=== PATIENT | female | born 1965 | race Two or more races ===

== ENCOUNTER 2017-02-23 06:06 | Inpatient (IN) | payer OTHER ==
[2017-02-02 15:09] LABS: % IMMATURE GRANULYOCYTES 0.3 % (0.0-1.1); ABSOLUTE IMMATURE GRANULOCYTES 0.03 10^3/uL (0.00-0.10); ADD DIFF? NO; ADD MORPH? NO; ADD SCAN? NO; ATYPICAL LYMPHOCYTE FLAG 0 (0-99); FRAGMENT RBC FLAG 0 (0-99); HEMATOCRIT 42.4 % (38.0-47.0); HEMOGLOBIN 13.9 g/dL (12.6-16.3); LEFT SHIFT FLG 0 (0-99); LIPEMIA HEMOLYSIS FLAG 80 (0-99); MEAN CELL HEMOGLOBIN 30.2 pg (27.9-34.1); MEAN CELL HEMOGLOBIN CONCENTR. 32.8 g/dL (32.4-36.7); MEAN PLATELET VOLUME 10.3 fL (8.7-11.7); PLATELET CLUMPS FLAG 20 (0-99); PLATELET COUNT 284 10^3/uL (150-400); RED BLOOD CELL COUNT 4.61 10^6/uL (4.18-5.33); RED CELL DISTRIBUTION WIDTH 13.4 % (11.5-15.2)
[~2017-02-23 06:06] MED LIST: ACETAMINOPHEN 325 MG TAB PO ONE; CEFAZOLIN 2 GM/DEXTR 100 ML IV ONE; CHLORHEXIDINE GLUC HIBICLENS 118 ML BTL TP ONE; DEXAMETHASONE 4 MG/ML VIAL IVP ONE; FAMOTIDINE 20 MG TAB PO ONE; ROPI/epiNEPH/KETOROLAC JOINT COCKTAIL IU ONE; TRANEXAMIC ACID 3,000 MG in NS 50 ML IRR ONE
[2017-02-23] MEDS ORDERED: TRANEXAMIC ACID 3,000 MG/50 ML BAG IRR ONE (06:36)
[2017-02-23] MEDS ORDERED: LR 1,000 ML IV ONE (06:37)
[2017-02-23] MEDS ORDERED: LIDOCAINE 1% 5 ML SDV ID PRN (06:37)
[2017-02-23] MEDS ORDERED: CEFAZOLIN 2 GM/DEXTROSE/100 ML BAG IV ONE (06:46)
[2017-02-23] MEDS ORDERED: DEXAMETHASONE 4 MG/ML VIAL ONE (06:46)
[2017-02-23] MEDS ORDERED: FAMOTIDINE 20 MG TAB ONE (06:46)
[2017-02-23] MEDS ORDERED: ACETAMINOPHEN 325 MG TAB ONE (06:46)
[2017-02-23] MEDS ORDERED: LIDOCAINE 1% 5 ML SDV ONE (06:47)
[2017-02-23] MEDS ORDERED: MIDAZOLAM 2 MG/2 ML VIAL ONE (07:56)
[2017-02-23] MEDS ORDERED: PROPOFOL/EMULSION 500 MG/50 ML BOTTLE IV ONE ×2 (07:59→08:54)
[2017-02-23] MEDS ORDERED: PROMETHAZINE HCL 25 MG SUPPR PR PRN (08:44)
[2017-02-23] MEDS ORDERED: MAGNESIUM HYDROXIDE 30 ML UDCUP PO PRN (08:44)
[2017-02-23] MEDS ORDERED: DIPHENOXYLATE/ATROPINE LOMOTIL 1 TAB PO PRN (08:44)
[2017-02-23] MEDS ORDERED: ONDANSETRON DISINTEGRATING 4 MG TAB PO PRN (08:44)
[2017-02-23] MEDS ORDERED: diphenhydrAMINE 25 MG CAP PO PRN (08:44)
[2017-02-23] MEDS ORDERED: METOCLOPRAMIDE 10 MG/2 ML VIAL IVP PRN (08:44)
[2017-02-23] MEDS ORDERED: BISACODYL 10 MG SUPP PR PRN (08:44)
[2017-02-23] MEDS ORDERED: CYCLOBENZAPRINE 10 MG TAB PO PRN (08:44)
[2017-02-23] MEDS ORDERED: LACTULOSE 20 GM/30 ML UDCUP PO PRN (08:44)
[2017-02-23] MEDS ORDERED: TEMAZEPAM 15 MG CAP PO PRN (08:44)
[2017-02-23] MEDS ORDERED: POLYETHYLENE GLYCOL 3350 17 GM PKT PO PRN (08:44)
[2017-02-23] MEDS ORDERED: ONDANSETRON 4 MG/2 ML VIAL IVP PRN (08:44)
[2017-02-23] MEDS ORDERED: PHARMACY PAIN CONSULT 1 EA MISC PRN (08:44)
[2017-02-23] MEDS ORDERED: RIZATRIPTAN BENZOATE PO PRN (08:45)
[2017-02-23] MEDS ORDERED: LR 1,000 ML IV SCH (09:00)
--- NOTE | 2017-02-23 09:38 | POSTOPPROG ---
Post Op Note Date of Operation: 02/23/17 Surgeon: Rama Perry Charge Authorizer: obie perry Anesthesiologist: dr. arias Anesthesia: Spinal Pre-op Diagnosis: left hip OA Post-op Diagnosis: same Indication: left hip pain due to OA that failed conservative measures Procedure: L WAYNE ant approach Findings: severe hip OA Inf/Abcess present in the surg proc area at time of surgery?: No EBL: 100-500
[2017-02-23] MEDS ORDERED: fentaNYL 100 MCG/2 ML INJ ONE (09:53)
[2017-02-23] MEDS ORDERED: oxyCODONE IR 5 MG TAB ONE (10:15)
[2017-02-23] MEDS: ACETAMINOPHEN 325 MG TAB PO SCH ×2 (12:06→18:52)
[2017-02-23] MEDS: oxyCODONE IR 5 MG TAB PO PRN ×4 (13:16→20:55)
[2017-02-23] MEDS: ceFAZolin 2 GM/DEXTROSE 100 ML IV SCH ×2 (14:42→20:55)
[2017-02-23 15:08] VITALS: RESP 16
[2017-02-23] MEDS: SENNOSIDES/DOCUSATE SODIUM TAB PO SCH ×2 (17:01→20:55)
[2017-02-23] MEDS: FAMOTIDINE 20 MG TAB PO SCH (20:55)
[2017-02-23] MEDS: ASPIRIN 325 MG TAB PO SCH (20:55)
[2017-02-24] MEDS: ACETAMINOPHEN 325 MG TAB PO SCH ×2 (00:11→05:16)
--- NOTE | 2017-02-24 04:21 | GOP ---
[f rep st] OPERATIVE REPORT DATE OF OPERATION: 02/23/2017 SURGEON: Selene Pelaez MD ASSISTANT DIRECTOR OF SECURITY: FELTON Escobedo. ANESTHESIA: Spinal. PREOPERATIVE DIAGNOSIS: Left hip osteoarthritis. POSTOPERATIVE DIAGNOSIS: Left hip osteoarthritis. PROCEDURE PERFORMED: Total hip arthroplasty with x-ray. FINDINGS: ESTIMATED BLOOD LOSS: 200 cc. INDICATIONS: The patient has progressively worsening arthritis of the hip which has failed medical management. The patient understands the treatment options including continued non-operative care and has selected surgical intervention. The patient has decided to undergo total hip arthroplasty via the direct anterior approach, understanding the risks of the procedure including , but not limited to, neurovascular injury, infection, persistent pain, component wear and loosening, deep venous thrombosis, pulmonary embolism, limb length inequality, hip instability (including dislocation), and intra-operative fractures. DESCRIPTION OF PROCEDURE: After proper identification of the patient including verification and marking the surgical site, the patient was brought to the operating room and placed in the supine position. All bony prominences were well padded. Anesthesia was induced without complication and intravenous prophylactic antibiotics were administered prior to skin incision. The operative leg was placed in the Trumpf Arch table extension and the well leg in a Yellofin leg dubon. The patient was prepped and draped in the usual sterile fashion. The C-arm was draped for intra-operative fluoroscopy to check acetabular position, femoral component position including leg length and femoral offset. Attention was then drawn to surgical exposure of the hip. An incision was made with a #10 Bard Larry blade starting 3 cm lateral and 3 cm distal to the anterior superior iliac spine measuring 8-10 cm and coursing distally toward the greater trochanter. The skin and subcutaneous tissues were divided sharply down to the fascia lona. The fascia lona was incised in line with the skin incision exposing the underlying tensor fascia lona muscle. The muscle was bluntly elevated from the fascia and the first extracapsular Cobra retractor was placed laterally at the junction of the superior femoral neck and greater trochanter. The lateral femoral circumflex vessels were identified, cauterized , and divided with the Aquamantys bipolar cautery. The deep investing fascia of the TFL was divided to allow proper mobilization of the muscle preventing damage during the retraction. The reflected head of the rectus femoris muscle was elevated off the anterior hip capsule and a medial Cobra retractor was placed just proximal to the lesser trochanter. The anterior capsulotomy was made sharply from the superolateral acetabulum to the saddle junction of the superior femoral neck and greater trochanter, then coursing inferomedial towards the lesser trochanter. The retractors were then placed in the intracapsular position for femoral neck osteotomy. Corresponding to pre-operative templating, the osteotomy was made with the oscillating saw carefully protecting the greater trochanter and soft tissues. The femoral head was removed from the acetabulum with a corkscrew and confirmed to be severely arthritic with exposed bone, deformity and osteophytes. Similar findings were confirmed in the acetabulum. The Arch table extension was then placed in 40 degrees external rotation. Attention was then drawn to the acetabular preparation. After placement of the anterior and posterior Cobra retractors outside the labrum and intracapsular, the circumferential labrum was removed sharply. The foveal contents were then removed and hemostasis obtained with cautery. The first reamer selected was sized using the removed femoral head. Reaming began with medialization and then commenced in 2 mm increments at 45 degrees of abduction and 15 degrees of anteversion using fluoroscopic navigation. Reaming ceased 1 mm less than the definitive acetabular component and corresponded to the pre-operative templating. The final acetabular component was inserted using fluoroscopy to achieve proper orientation yielding excellent purchase and stability in the acetabulum. The final acetabular liner was then placed and its seating confirmed. Attention was then turned to the femur. The Arch table extension was placed in extension and adduction, delivering the osteotomized femoral neck into the wound. A 2-pronged femoral elevator was placed at the calcar and another at the tip of the greater trochanter. The posterolateral capsule was released with cautery allowing mobilization of the femur lateral and anterior for preparation. The external rotators were visualized and preserved. A curette and rongeur were used to open the starting point for broaching. Serial broaching started with the #0 broach and ended with the broach that exhibited excellent fit in the proximal femur. A change in pitch during mallet strikes was accompanied by the inability to advance the broach any further. The trial reduction was performed and fluoroscopic navigation was utilized to check limb length. Adjustments were made to equalize limb length accordingly. After the final trials were accepted they were removed and the wound was copiously lavaged. The femoral component was seated to the same depth as the final broach and the femoral head was impacted onto the clean trunnion. The hip was then reduced for the final time and once more fluoroscopy was used to check that limb length equality was achieved. The wound was irrigated and closed in layers, the fascia lona with 2-0 Quill, the subcutaneous tissue with 2-0 Quill, and the skin with Dermabond. Sterile dressings were applied. Final sharps and sponge counts were accurate. The patient was then transferred to a hospital bed and brought to the recovery room in stable condition. IMPLANTS: Accolade II, size 3 at 127. Acetabular component 48 mm Tritanium. The liner is a Trident X3 at 32 mm. The head is a Biolox Delta 32 mm +0. /[id number]/MODL MTDD
[2017-02-24 05:29] LABS: HEMATOCRIT 34.8 % (38.0-47.0)
[2017-02-24 07:14] VITALS: BP 122/79; PULSE 60; TEMP 97.6; O2SAT 95
[2017-02-24] MEDS: ASPIRIN 325 MG TAB PO SCH (08:22)
[2017-02-24] MEDS: SENNOSIDES/DOCUSATE SODIUM TAB PO SCH (08:22)
[2017-02-24] MEDS: FAMOTIDINE 20 MG TAB PO SCH (08:23)
[2017-02-24] MEDS ORDERED: NON-FORMULARY NEW DRUG (Citalopram Hydrobromide [Celexa 10 Mg] 10 MG) PO SCH (09:00)
[2017-02-24] MEDS ORDERED: LOSARTAN POTASSIUM 25 MG TAB PO SCH (09:00)
[2017-02-24] MEDS ORDERED: NON-FORMULARY NEW DRUG (Esomeprazole Mag Trihydrate [Nexium] 40 MG) PO SCH (09:00)
[2017-02-24] MEDS ORDERED: CITALOPRAM 20 MG TAB PO SCH (09:00)
[2017-02-24] MEDS ORDERED: PANTOPRAZOLE SODIUM 40 MG TAB PO SCH (09:00)
[2017-02-24] MEDS: oxyCODONE IR 5 MG TAB PO PRN (10:40)
--- NOTE | 2017-02-24 11:41 | SOAPPROG ---
SOAP Progress Note Assessment/Plan: Assessment: Patient is doing well POD 1 s/p L WAYNE Pain management: pain is well controlled on oral pain meds. VTE ppx: recommend aspirin daily for 3 weeks, cont GLENDA and SCDs Anemia: level is expected initially postop. Asymptomatic. Continue to monitor D/c planning: d/c to home today pending release from PT Plan: 02/24/17 11:40 Subjective: Mitali is doing well today, denies SOB, chest pain and N/V Objective: Vital Signs Temp Pulse Resp BP Pulse Ox 36.4 C 60 16 122/79 H 95 02/24/17 07:13 02/24/17 07:13 02/24/17 07:13 02/24/17 07:13 02/24/17 07:13 Laboratory Results 02/24/17 05:07 02/23/17 02/24/17 02/25/17 05:59 05:59 05:59 Intake Total 3605 Output Total 1850 Balance 1755 LLE: incision dressing is clean and dry, NVI, +pf/df ICD10 Worksheet Patient Problems: Problems Problem Status Onset Primary localized osteoarthritis of left hip Acute
--- NOTE | 2017-02-24 12:32 | GDS ---
[f rep st] DISCHARGE SUMMARY ADMISSION DIAGNOSIS: Left hip osteoarthritis. DISCHARGE DIAGNOSIS: Left hip osteoarthritis. PROCEDURE: Left total hip arthroplasty. VTE PROPHYLAXIS: Aspirin recommended for 3 weeks daily. BRIEF DESCRIPTION OF HOSPITAL STAY: Patient was admitted for an elective joint arthroplasty. The p atient tolerated the procedure well and has passed physical therapy. The patient was given appropri ate antibiotic prophylaxis and venous thromboembolism prophylaxis. The patient's pain was well cont rolled on oral pain medication, patient was holding down food, and had urinated. Decision was made to discharge the patient. The patient was given post-operative prescriptions pre-operatively. PLAN: Please follow up as scheduled with Dr. Pelaez's office March 15 at 8:45 a.m. /[id number]/MODL
== END 2017-02-24 12:39 | disposition home or self-care (01) | DRG 470 ==
LOC: F3N 06:06
PROVIDERS: ADMIT Orthopaedic Surgery; ATTEND Orthopaedic Surgery
PROC: 0SRB04Z Replacement of Left Hip Joint with Ceramic on Polyethylene Synthetic Substitute, Open Approach (ICD-10-PCS; principal; 2017-02-23 08:15)
DX: M16.12 Unilateral primary osteoarthritis, left hip (principal)
CPT/HCPCS: 97116-GP; 97161-GP; 97165-GO; J0171; J0690; J1100; J1885; J2250; J2704; J2795; J3010

== ENCOUNTER → 2017-04-06 | Outpatient (CLI) | payer OTHER | LOC: FIMAGING 15:30 | PROVIDERS: ATTEND Nurse Practitioner Adult Health | DX: M79.651 Pain in right thigh (principal); M79.652 Pain in left thigh; Z96.642 Presence of left artificial hip joint ==

== ENCOUNTER → 2017-07-13 | Outpatient (CLI) | payer OTHER | LOC: BMCIMAGING 13:51 | PROVIDERS: ATTEND Internal Medicine | DX: Z12.31 Encounter for screening mammogram for malignant neoplasm of breast (principal) | CPT/HCPCS: G0202 ==

== ENCOUNTER → 2017-08-26 | Outpatient (CLI) | payer OTHER | LOC: FIMAGING 07:51 | PROVIDERS: ATTEND Orthopaedic Surgery | DX: Z01.818 Encounter for other preprocedural examination (principal); M17.11 Unilateral primary osteoarthritis, right knee ==

== ENCOUNTER 2017-09-07 09:25 | Observation (INO) | payer OTHER ==
[~2017-09-07 09:25] MED LIST changes: -ACETAMINOPHEN 325 MG TAB PO ONE; -CEFAZOLIN 2 GM/DEXTR 100 ML IV ONE; -CHLORHEXIDINE GLUC HIBICLENS 118 ML BTL TP ONE; -DEXAMETHASONE 4 MG/ML VIAL IVP ONE; -FAMOTIDINE 20 MG TAB PO ONE; -ROPI/epiNEPH/KETOROLAC JOINT COCKTAIL IU ONE; +ROPIVACAINE 0.2% 80 MG, EPINEPHrine 0.2 MG, KETOROLAC TROMETHAMINE 30 MG in BAG 0 ML IU ONE
[2017-09-07] MEDS ORDERED: TRANEXAMIC ACID 3,000 MG/50 ML BAG IRR ONE (09:28)
[2017-09-07] MEDS ORDERED: VANCOMYCIN 1 GM VIAL ONE (09:28)
[2017-09-07] MEDS ORDERED: ceFAZolin 2 GM/SWFI 2 GM/20 ML SYR IVP ONE (09:51)
[2017-09-07] MEDS ORDERED: DEXAMETHASONE 4 MG/ML VIAL IVP ONE (09:51)
[2017-09-07] MEDS ORDERED: FAMOTIDINE 20 MG TAB PO ONE (09:51)
--- NOTE | 2017-09-07 10:55 | PDHPUP ---
History & Physical Update H&P update statement: This history and physical update is based on an assessment of the patient which was completed after admission or registration (within 24 hours), but prior to the surgery/procedure. H&P update: H&P reviewed & patient examined, no change in patient's condition since H&P completed
[2017-09-07] MEDS ORDERED: MIDAZOLAM 2 MG/2 ML VIAL ONE (11:28)
[2017-09-07] MEDS ORDERED: MIDAZOLAM 2 MG/2 ML VIAL IVP ONE (11:34)
--- NOTE | 2017-09-07 11:35 | PDANEPAE ---
ANE History of Present Illness patient presents for partial R TKA ANE Past Medical History - Cardiovascular History Hx Hypertension: Yes Hx Arrhythmias: No Hx Chest Pain: No Hx Coronary Artery / Peripheral Vascular Disease: No Hx CHF / Valvular Disease: No Hx Palpitations: No Cardiovascular History Comment: PCP MONITORS BP MEDS - Pulmonary History Hx COPD: No Hx Asthma/Reactive Airway Disease: No Hx Recent Upper Respiratory Infection: No Hx Oxygen in Use at Home: No Hx Sleep Apnea: No Sleep Apnea Screening Result - Last Documented: Positive Pulmonary History Comment: SUDHEER w/CPAP - Neurologic History Hx Cerebrovascular Accident: No Hx Seizures: No Hx Dementia: No - Endocrine History Hx Diabetes: No - Renal History Hx Renal Disorders: No - Liver History Hx Hepatic Disorders: No - Neurological & Psychiatric Hx Hx Neurological and Psychiatric Disorders: Yes Neurological / Psychiatric History Comment: MIGRAINES - Cancer History Hx Cancer: No - Congenital Disorder History Hx Congenital Disorders: No - GI History Hx Gastrointestinal Disorders: Yes Gastrointestinal History Comment: REFLUX- ON NEXIUM - Other Health History Other Health History: WEARS GLASSES - Chronic Pain History Chronic Pain: Yes (LEFT HIP) - Surgical History Prior Surgeries: 04/02/15 LEFT TKA WITH RAGINI. ARTHROSCOPES SARAH KNEES. SHOULDER ARTHROSCOPY. UMB HERNIA REPAIR. TUBAL LIGATION ANE Review of Systems Review of Systems: - Exercise capacity METS (RN): 4 METS ANE Patient History - Allergies Allergies/Adverse Reactions: ciprofloxacin [From Cipro] Allergy (Verified 08/10/17 10:12) Hives ciprofloxacin HCl [From Cipro] Allergy (Verified 08/10/17 10:12) Hives diclofenac sodium [From Voltaren] Allergy (Verified 08/10/17 10:12) Other-Enter Comments - Home Medications Home medications: home medication list seen and reviewed Home Medications: Cetirizine [ZyrTEC 10 mg (*)] 10 mg PO DAILY 03/13/15 [Last Taken 02/09/17] Losartan Potassium [Cozaar 25 mg (*)] 25 mg PO DAILY 01/25/17 [Last Taken ] Cholecalciferol Vit D3 [Vitamin D3 (*)] 5,000 units PO DAILY 02/03/17 [Last Taken 02/09/17] - NPO status NPO Status: no food or drink >8 hours NPO Since - Liquids (Date): 09/07/17 NPO Since - Liquids (Time): 08:15 NPO Since - Solids (Date): 09/06/17 NPO Since - Solids (Time): 19:00 - Smoking Hx Smoking Status: Never smoked - Family Anes Hx Family Hx Anesthesia Complications: NONE ANE Labs/Vital Signs - Vital Signs Blood Pressure: 144/95 Heart Rate: 72 Respiratory Rate: 20 O2 Sat (%): 93 Height: 167.64 cm Weight: 99.79 kg ANE Physical Exam - Airway Neck exam: FROM Mallampati Score: Class 2 Mouth exam: normal dental/mouth exam - Pulmonary Pulmonary: no respiratory distress - Cardiovascular Cardiovascular: regular rate and rhythym - ASA Status ASA Status: II ANE Anesthesia Plan Anesthesia Plan: spinal Regional Anesthesia: single shot NB (RBA discussed)
[2017-09-07] MEDS ORDERED: BUPIVACAINE 0.5% 30 ML SDV ONE (11:36)
[2017-09-07] MEDS ORDERED: fentaNYL 100 MCG/2 ML INJ ONE (11:37)
[2017-09-07] MEDS ORDERED: PROPOFOL/EMULSION 500 MG/50 ML BOTTLE IV ONE ×2 (11:37→12:20)
[2017-09-07] MEDS ORDERED: ONDANSETRON 4 MG/2 ML VIAL ONE (12:04)
[2017-09-07] MEDS ORDERED: TEMAZEPAM 15 MG CAP PO PRN (12:05)
[2017-09-07] MEDS ORDERED: METOCLOPRAMIDE 10 MG/2 ML VIAL IVP PRN (12:05)
[2017-09-07] MEDS ORDERED: CYCLOBENZAPRINE 10 MG TAB PO PRN (12:05)
[2017-09-07] MEDS ORDERED: diphenhydrAMINE 25 MG CAP PO PRN (12:05)
[2017-09-07] MEDS ORDERED: HYDROCODONE/APAP 10/325 TAB PO PRN (12:05)
[2017-09-07] MEDS ORDERED: ONDANSETRON 4 MG/2 ML VIAL IVP PRN ×2 (12:05→12:53)
[2017-09-07] MEDS ORDERED: MAGNESIUM HYDROXIDE 30 ML UDCUP PO PRN (12:05)
[2017-09-07] MEDS ORDERED: ONDANSETRON DISINTEGRATING 4 MG TAB PO PRN (12:05)
[2017-09-07] MEDS ORDERED: BISACODYL 10 MG SUPP PR PRN (12:05)
[2017-09-07] MEDS ORDERED: POLYETHYLENE GLYCOL 3350 17 GM PKT PO PRN (12:05)
[2017-09-07] MEDS ORDERED: DIPHENOXYLATE/ATROPINE LOMOTIL 1 TAB PO PRN (12:05)
[2017-09-07] MEDS ORDERED: PROMETHAZINE HCL 25 MG SUPPR PR PRN (12:05)
[2017-09-07] MEDS ORDERED: PROMETHAZINE HCL 25 MG/ML INJ IVP PRN (12:05)
[2017-09-07] MEDS ORDERED: LACTULOSE 20 GM/30 ML UDCUP PO PRN (12:05)
[2017-09-07] MEDS ORDERED: ROPIVACAINE HCL 150 MG/30 ML INJ ONE (12:06)
[2017-09-07] MEDS ORDERED: clonIDINE 1 MG/10 ML VIAL EP ONE (12:06)
[2017-09-07] MEDS ORDERED: LR 1,000 ML IV SCH (12:30)
[2017-09-07] MEDS ORDERED: LR 500 ML IV PRN (12:53)
[2017-09-07] MEDS ORDERED: NALOXONE HCL 0.4 MG/ML INJ IVP PRN (12:53)
[2017-09-07] MEDS ORDERED: OXYCODONE/APAP 5/325 TAB PO PRN (12:53)
[2017-09-07] MEDS ORDERED: HYDROCODONE/APAP 5/325 TAB PO PRN (12:53)
--- NOTE | 2017-09-07 12:55 | POSTOPPROG ---
Post Op Note Date of Operation: 09/07/17 Surgeon: Rama Perry Lithopress Operator: obie perry Anesthesiologist: dr. castro Anesthesia: Spinal, Other (Specify) (adductor canal block) Pre-op Diagnosis: right knee OA Post-op Diagnosis: same Indication: right knee pain due to OA that failed conservative measures Procedure: R med partial knee arthroplasty Findings: severe medial knee OA Inf/Abcess present in the surg proc area at time of surgery?: No EBL: 50-100
--- NOTE | 2017-09-07 13:14 | POSTANESTH ---
Post Anesthetic Evaluation Cardiovascular Status: Similar to Pre-Op Cond Respiratory Status: Similar to Pre-op Cond. Level of Consciousness/Mental Status: Can Participate in Eval Pain Control: Adequate, Prn Tx Ordered Nausea/Vomiting Control: Adequate, Prn Tx Ordered Complications Possibly Related to Anesthesia: None Noted
[2017-09-07] MEDS: ceFAZolin 2 GM/DEXTROSE 100 ML IV SCH (20:03)
[2017-09-07] MEDS: SENNOSIDES/DOCUSATE SODIUM TAB PO SCH (20:03)
[2017-09-07] MEDS: FAMOTIDINE 20 MG TAB PO SCH (20:03)
[2017-09-07] MEDS: ASPIRIN 325 MG TAB PO SCH (20:05)
[2017-09-08 05:04] LABS: HEMATOCRIT 37.1 % (38.0-47.0); HEMOGLOBIN 12.4 g/dL (12.6-16.3)
[2017-09-08] MEDS: ceFAZolin 2 GM/DEXTROSE 100 ML IV SCH (06:29)
[2017-09-08 07:45] VITALS: BP 134/81; PULSE 74; RESP 14; TEMP 98.3; O2SAT 96
[2017-09-08] MEDS: ASPIRIN 325 MG TAB PO SCH (08:47)
[2017-09-08] MEDS: FAMOTIDINE 20 MG TAB PO SCH (08:47)
[2017-09-08] MEDS: SENNOSIDES/DOCUSATE SODIUM TAB PO SCH (08:48)
[2017-09-08] MEDS ORDERED: LOSARTAN POTASSIUM 25 MG TAB PO SCH (09:00)
--- NOTE | 2017-09-08 10:40 | SOAPPROG ---
SOAP Progress Note Assessment/Plan: Assessment: Patient is doing well POD 1 s/p R medial partial knee arthroplasty Pain management: pain is well controlled on oral pain meds. VTE ppx: recommend aspirin daily for 3 weeks, cont GLENDA and SCDs Anemia: level is expected initially postop. Asymptomatic. Continue to monitor D/c planning: d/c to home today pending release from PT postop urinary retention: straight cath'd yesterday, resolved today Plan: 09/08/17 10:39 Subjective: Mitali is doing well today, denies SOB, chest pain and N/v. Objective: Vital Signs Temp Pulse Resp BP Pulse Ox 36.8 C 74 14 134/81 H 96 09/08/17 07:42 09/08/17 07:42 09/08/17 07:42 09/08/17 08:48 09/08/17 07:42 Laboratory Results 09/08/17 04:17 09/07/17 09/08/17 09/09/17 05:59 05:59 05:59 Intake Total 1800 Output Total 850 1 Balance 950 -1 RLE: incision dressing is clean and dry, NVI, +pf/df ICD10 Worksheet Patient Problems: Problems Problem Status Onset Primary localized osteoarthritis of right knee Acute Primary localized osteoarthritis of left hip Acute
--- NOTE | 2017-09-08 11:25 | ASDISCHSUM ---
Discharge Information Plan Status:Home with No Needs Medically Cleared to Leave: Discharge Date:09/08/2017 11:06 AM CM D/C Disposition:Home, Routine, Self-Care ADT D/C Disposition:Home, Routine, Self-Care Projected Discharge Date:09/08/2017 11:06 AM Transportation at D/C: Discharge Delay Reason: Follow-Up Date:09/08/2017 11:06 AM Discharge Slot: Final Diagnosis: Placement Information Patient Contact Information Contact Name:JOHNIE Relationship: Address:[address] City:[place] Alternate Phone: [facility]/Zip Code:[place] [address] Email: Financial Information Financial Class:[facility] Primary Plan Desc:[employer] PPO HMO OPEN ACC LOCAL Primary Plan Number:[id number] Secondary Plan Desc: Secondary Plan Number: Assessment Information Intervention Information Intervention Type:*Incorrect Registration Date of Service:09/07/2017 04:47 PM Patient Type:Inpatient Staff Member:MONIQUE Weiner, Lissy Hours: Discipline: Severity: Comment:
--- NOTE | 2017-09-08 19:13 | GOP ---
[f rep st] OPERATIVE REPORT DATE OF OPERATION: 09/07/2017 SURGEON: Selene Pelaez MD FINANCIAL PLANNING ADVISER: Anny Pelaez PA-C PREOPERATIVE DIAGNOSIS: Right knee osteoarthritis. POSTOPERATIVE DIAGNOSIS: Right knee osteoarthritis. PROCEDURE PERFORMED: Right medial compartment partial knee replacement with computer navigation and robotic assist. ANESTHESIA: Spinal. FINDINGS: INDICATIONS: This is a 52 year old female with progressive pain of the right knee unresponsive to conservative care. Risks and benefits of surgical intervention were explained in detail. DESCRIPTION OF PROCEDURE: The patient was brought to the operating room and placed on the table in supine position. Spinal anesthesia was induced without difficulty. A pneumatic tourniquet was applied about the right proximal thigh and the leg was prepped and draped in sterile fashion. Attention was turned first to the distal aspect of the right femur. At 3 cm proximal to the lateral rise of the femur, 2 percutaneous half pins were placed for fixation of the femoral array. In a similar fashion, 2 pins were placed anterolateral on the tibia for fixation of the tibial array. External land marking and registration of the hip center was performed without difficulty. After exsanguination by elevation, the tourniquet was inflated to 300 mmHg. Incision was made from the tibial tuberosity to the superior pole of the patella. Dissection was carried out through the subcutaneous tissue to the deep fascia using Bovie electrocautery for hemostasis. Medial parapatellar arthrotomy was carried out to the superior pole of the patella. The medial collateral ligament was elevated and the infrapatellar fat pad was resected. Internal femoral and tibial registration was carried out without difficulty and the femoral and tibial checkpoints were placed and verified for accuracy. Attention was turned to the femur. The foot print for the size 3 femoral component was cut with the 6 mm bur using the [employer] robotic system and verified for accuracy against the CT based plan. The hole was cut for the femoral post. In a similar fashion, the 6 mm bur was used to cut the foot print for the size 3 tibial component using the [employer] system and verified for accuracy against the CT based plan. Attention was turned to the posterior aspect of the knee and remnants of the medial meniscus were excised. The posterior capsule was injected with ropivacaine, epinephrine and Toradol. Trial reduction was carried out and there was excellent range of motion, alignment and stability using the size 3 femoral component and the size 3 tibial component, 3 x 8 polyethylene. All trials were then removed. The joint was thoroughly irrigated and carefully dried. One package of cement and 1 gram of vancomycin were mixed in the vacuum mixer and placed on the fixation surfaces of all components. The components were implanted and all excess cement was thoroughly removed. Implant placement was verified against the CT view plan and found to be excellent. The tourniquet was deflated and all bleeders were coagulated. The wound was thoroughly irrigated and closed using interrupted sutures of 2-0 Vicryl for the joint capsule. The subcu was closed with 3-0 Vicryl and the skin with 4-0 Monocryl. Dermabond and Steri-Strips were applied, followed by a compressive dressing. The patient was then moved from the operating room to the recovery room in good condition, having tolerated the procedure well. CASE CLASSIFICATION: Clean. /[id number]/MODL MTDD
--- NOTE | 2017-09-09 19:19 | GDS ---
[f rep st] DISCHARGE SUMMARY ADMISSION DIAGNOSIS: Right knee osteoarthritis. DISCHARGE DIAGNOSIS: Right knee osteoarthritis. PROCEDURE: Right knee partial arthroplasty medial compartment, robot assisted. VTE PROPHYLAXIS: Aspirin recommended, 3 weeks, daily. BRIEF DESCRIPTION OF HOSPITAL STAY: Patient was admitted for an elective joint arthroplasty. The pa tesha tolerated the procedure well and has passed physical therapy. The patient was given appropriat e antibiotic prophylaxis and venous thromboembolism prophylaxis. The patient's pain was well control led on oral pain medication, patient was holding down food, and had urinated. Decision was made to d ischarge the patient. The patient was given post-operative prescriptions pre-operatively. PLAN: To follow up as scheduled September 29 at 3:45 p.m. /[id number]/MODL
== END 2017-09-08 11:06 | disposition home or self-care (01) ==
LOC: INTOOBSV 09:25 → F3N 09:25
PROVIDERS: ADMIT Orthopaedic Surgery; ATTEND Orthopaedic Surgery
PROC: 0SRC0JZ Replacement of Right Knee Joint with Synthetic Substitute, Open Approach (ICD-10-PCS; principal; 2017-09-07 11:15)
DX: M17.11 Unilateral primary osteoarthritis, right knee (principal)
CPT/HCPCS: 27446; 73560; 97116; 97161; 97165; G0378; C1713; J0171; J0690; J0735; J1100; J1885; J2250; J2405; J2704; J2795; J3010; J3370

== ENCOUNTER → 2018-07-17 | Outpatient (CLI) | payer OTHER | LOC: BMCIMAGING 08:17 | PROVIDERS: ATTEND Internal Medicine | DX: Z12.31 Encounter for screening mammogram for malignant neoplasm of breast (principal) ==

== ENCOUNTER → 2019-01-12 | Outpatient (CLI) | payer OTHER | LOC: BMCIMAGING 07:39 | PROVIDERS: ATTEND Internal Medicine | DX: N95.0 Postmenopausal bleeding (principal) ==